=== PATIENT | female | born 1970 ===

== ENCOUNTER → 2021-12-01 08:29 | Outpatient (CLI) | payer OTHER, SELFPAY ==
--- NOTE | 2021-12-01 | DI.US.S_ITS ---
ULTRASOUND OF RIGHT BREAST: 12/01/2021 CLINICAL: Palpable right breast lump. Comparison is made to exams dated: 12/01/2021 mammogram - [facility], 07/05/2020 mammogram, and 04/15/2019 mammogram - [facility]. Color flow ultrasound of the right breast was performed. Kaur scale images of the real-time examination were reviewed. There is a 1 cm x 0.7 cm x 0.4 cm intradermal oval cyst with a thickened wall in the right breast at 9 o'clock skin surface. This oval cyst is hypoechoic and there is a tract to the skin surface. This correlates as palpated. Color flow imaging demonstrates that there is an adjacent vascularity. IMPRESSION: BENIGN There is no sonographic evidence of malignancy. The 1 cm x 0.7 cm x 0.4 cm oval cyst in the right breast is consistent with a sebaceous cyst and is benign. Clinical management recommended. Return to annual mammogram screening schedule is recommended. Findings and recommendations were conveyed to the patient at time of exam. This exam was interpreted at Station ID: [id number]. Electronically Signed By: Radha herrera/:12/01/2021 11:10:43 letter sent: Normal Exam Ultrasound BI-RADS: 2 Benign
--- NOTE | 2021-12-01 08:32 | DI.MG.S_ITS ---
BILATERAL DIGITAL DIAGNOSTIC MAMMOGRAM 3D/2D: 12/01/2021 CLINICAL: Right nipple tenderness. Comparison is made to exams dated: 07/05/2020 mammogram, 04/15/2019 mammogram, and 03/06/2017 mammogram - [facility]. The tissue of both breasts is heterogeneously dense. This may lower the sensitivity of mammography. No significant masses, calcifications, or other findings are seen in either breast. Specifically, no finding to correspond to the patient's skin tenderness/ palpable abnormality in the anterior lateral right breast. Mammograms are otherwise stable. IMPRESSION: INCOMPLETE: NEEDS ADDITIONAL IMAGING EVALUATION There is no correlate to the patient's right breast tenderness at the skin in the anterior lateral region. Ultrasound is recommended for full evaluation of this area. This was performed immediately following this exam. Bilateral mammograms are otherwise normal and stable. Based on the Tyrer Cuzick model (a risk assessment model) the patient's lifetime risk is 9.5% and her 10 year risk is 2.1%. According to the ACR, ACS, and NCCN guidelines, an annual breast MRI exam along with mammogram is recommended if the patient's lifetime risk is 20% or greater. This exam was interpreted at Station ID: [id number]. NOTE: For mammograms, a report in lay terms will be sent to the patient. Approximately 15% of breast malignancies will not be visualized mammographically. In the management of a palpable breast mass, a negative mammogram must not discourage biopsy of a clinically suspicious lesion. Electronically Signed By: Radha herrera/:12/01/2021 09:26:14 ACR BI-RADS Category 0: Incomplete [id number]
== END ==
PROVIDERS: PCP Physician Assistant Medical; Referring Provider Physician Assistant Medical; Visit Provider Physician Assistant Medical
DX: N60.01 Solitary cyst of right breast (principal); N64.4 Mastodynia; R92.2 Inconclusive mammogram
CPT/HCPCS: 76642; 77066; G0279

== ENCOUNTER 2023-03-19 10:16 | Day surgery (SDC) | payer OTHER, SELFPAY ==
--- NOTE | 2023-03-19 | PATH_ITS ---
[facility] Accession Number: [id number] No. of containers..01 Tissue . 01 Material submitted: . colon - SIGMOID POLYP . 01 Diagnosis: COLON, SIGMOID, POLYP BIOPSY: - HYPERPLASTIC POLYP. TXN 04/01/2023 1510 Local . 01 Electronically signed: . Theodore Vallecillo MD, Pathologist NPI- [id number] . 01 Gross description: . SIGMOID POLYP: Received in formalin is 1 fragment(s) of hutchinson, soft tissue measuring 0.3 x 0.3 x 0.3 cm submitted entirely in 1 cassette(s) /LOPEZ 03/21/2023 2243 Local . 01 Pathologist provided ICD-10: Z12.11 . 01 CPT . 375188 Specimen Comment: A courtesy copy of this report has been sent to [phone] Performed at: 01 [facility] [address] [place] [address], [place], [place] [id number] MD Zana Marie MD Phone: [phone]
[2023-03-19 11:11] VITALS: BP 157/103; PULSE 81; RESP 17; TEMP 36.6; O2SAT 97; BMI 33.2
[2023-03-19] MEDS: LACTATED RINGERS 1,000 ML 150 ML IV (11:25)
--- NOTE | 2023-03-19 12:13 | P.HP_ITS ---
History of Present Illness History of Present Illness Date Patient Seen: 03/19/23 Time Patient Seen: 12:13 Chief complaint: Colonoscopy Narrative: The patient presents for colorectal screening. They have never had any previous examination for such. No personal or family history of colon cancer. On further history denies any recent gastrointestinal symptoms. No nausea, vomiting, abdominal pain, loss of appetite, unexplained weight loss, change in bowel habits, or blood per rectum. [facility] Social History household members: spouse Smoking Status: Never smoker alcohol intake: current Meds Home Medications and Allergies Home Medications Medication Instructions Recorded Confirmed Type triamterene 37.5 1 cap PO DAILY 03/19/23 03/19/23 History mg-hydrochlorothiazide 25 mg capsule Allergies Allergy/AdvReac Type Severity Reaction Status Date / Time codeine Allergy Verified 03/19/23 11:10 Exam Vital Signs (past 8 hours): - 03/19/23 11:11 Temperature 98 F Pulse Rate 81 Respiratory Rate 17 Blood Pressure 157/103 H Pulse Oximetry 97 Oxygen Delivery Method Room Air Oxygen Delivery Method Room Air Narrative Exam Narrative: General adult woman alert oriented no acute distress Chest nonlabored respiration Extremities warm well perfused Assessment & Plan Assessment & Plan narrative: The patient requires colorectal screening and colonoscopy is recommended. Technical details were discussed. Risks, benefits, alternatives explained. Risks including but not limited to myocardial infarction, aspiration, bleeding, pain, missed lesion, incomplete examination, need for further radiographic studies, colonic perforation, and need for major abdominal surgery were discussed. All questions were answered to their satisfaction, and they are in agreement with this plan.
--- NOTE | 2023-03-19 12:14 | P.OP.COLON_ITS ---
Operative Date/Time/Diagnoses Date of procedure: 03/19/23 Time of procedure: 12:46 Pre-op diagnosis: Colorectal screening Procedure & Clinicians Study performed: Colonoscopy and polypectomy Same procedure as scheduled: Yes Indications: Colorectal screening Surgeon: Kvng Asencio Procedure Notes Procedure in detail: The history and physical was performed/updated and the patient is ASA class is 2. The procedure was discussed in detail with the patient. Potential risks complications including infection, bleeding, missed diagnosis, perforation, need for surgery, and were explained. Their questions were answered and informed consent was obtained. Patient was brought to the procedure room and placed standard monitoring equipment. The patient's vital signs were monitored continuously throughout the entire procedure. Prior to starting time-out was performed. The patient was placed in the left lateral recumbent position. Procedural sedation was administered by anesthesia. Examination began with a thorough inspection of the perianal area there was no evidence of fissures, fistulae, external hemorrhoids or cutaneous malignancy. The colonoscopy scope was then placed into the anal canal and was advanced to the cecum, which was identified by the ileocecal valve, the appendiceal orifice and the confluence of the taenia. The scope was then slowly withdrawn examining colon thoroughly in all directions, irrigating it of any residual stool. The scope was retroflexed within the rectum The patient tolerated the procedure well. They will be discharged once criteria are met. The prep was of good/excellent quality. The withdrawl time was 9 min utes. FINDINGS * Sigmoid colon-two polyps ranging between 3-5 mm removed with combination of cold snare and forceps at 30 cm from anal verge Specimen(s): other (Sigmoid colon polyps) Impression: Colonic polyps x2 Post-procedure Plan for aftercare: Follow-up is dependent on pathology findings likely 5 years. Disposition: same day surgery
[2023-03-19 12:47] VITALS: BP 134/76; PULSE 79; RESP 19; TEMP 36.3; O2SAT 96
[2023-03-19 12:51] VITALS: BP 132/93; PULSE 78; RESP 18; O2SAT 96
[2023-03-19 12:56] VITALS: BP 132/92; PULSE 68; RESP 18; O2SAT 97
[2023-03-19 13:06] VITALS: BP 133/94; PULSE 68; RESP 19; TEMP 36.7; O2SAT 99
== END 2023-03-19 13:25 | disposition home or self-care (01) ==
PROVIDERS: PCP Physician Assistant Medical; Referring Provider Surgery; Visit Provider Surgery
PROC: 0DJD8ZZ Inspection of Lower Intestinal Tract, Via Natural or Artificial Opening Endoscopic (ICD-10-PCS; CPT 45378; principal; 2023-03-19 11:45)
DX: Z12.11 Encounter for screening for malignant neoplasm of colon (principal); K63.5 Polyp of colon
CPT/HCPCS: 45385; 45380; J2704